=== PATIENT | male | born 1945 | race Two or more races ===

== ENCOUNTER 2023-11-28 00:25 | Inpatient (IN) | payer OTHER ==
[~2023-11-28] VITALS: Ht 175.3 cm; Wt 82.7 kg
[~2023-11-28 00:25] MED LIST: ASPI81CH43 PO; LAMO25CH PO; ZOLP5TAB PO
[2023-11-28 00:39] LABS: Basophils # (auto) 0.1 10 ^3/uL (0-0.2); Basophils % (auto) 1.5 % (0.0-2.0); Eosinophils # (auto) 0.2 10 ^3/uL (0-0.8); Eosinophils % (auto) 3.4 % (0.0-7.0); Hemoglobin 14.7 g/dL (13.5-17.5); Lymphocytes # (auto) 1.8 10 ^3/uL (0.4-5.4); Lymphocytes % (auto) 37.6 % (10.0-50.0); Mean Corpuscular Hemoglobin 28.3 pg (28.0-32.0); Mean Corpuscular Hgb Conc. 33.5 g/dL (32.0-36.0); Mean Corpuscular Volume 84.6 fL (80.0-100.0); Monocytes # (auto) 0.5 10 ^3/uL (0-1.3); Monocytes % (auto) 9.5 % (0.0-12.0); Neutrophils # (auto) 2.3 10 ^3/uL (1.6-8.6); Nucleated Red Blood Cells % 0.1 %; Red Cell Distribution Width 14.8 % (11.8-14.3); White Blood Cell 4.9 10^3/uL (4.4-10.8)
[2023-11-28 00:54] LABS: Alanine Aminotransferase 29 U/L (7-40); Albumin 3.9 g/dL (3.2-4.8); Alkaline Phosphatase 93 U/L (46-116); Anion Gap 8 (5-15); Aspartate Aminotransferase 32 U/L (13-40); BUN/Creatinine Ratio 12.6 (10.0-20.0); Blood Urea Nitrogen 16 mg/dL (9-23); Calcium 9.2 mg/dL (8.7-10.4); Carbon Dioxide 25 mmol/L (20-30); Chloride 103 mmol/L (98-107); Glucose 349 mg/dL (74-106); Potassium 4.2 mmol/L (3.5-5.1); Sodium 136 mmol/L (136-145)
[2023-11-28 00:55] LABS: Bilirubin, Total 0.3 mg/dL (0.2-1.0); Total Protein 6.7 g/dL (5.7-8.2)
[2023-11-28 04:30] VITALS: PULSE 62; RESP 16; O2SAT 98
[2023-11-28] MEDS ORDERED: ONDANSETRON HCL 4 MG/2 ML VIAL IV PRN (05:00)
[2023-11-28] MEDS: SODIUM CHLORIDE 0.9% 1,000 ML IV SCH (05:00)
[2023-11-28] MEDS ORDERED: HYDROcodone-ACET 5/325MG TAB PO PRN (05:00)
[2023-11-28] MEDS ORDERED: hydrALAZINE HCL 20 MG/ML VL IV PRN (05:00)
[2023-11-28] MEDS ORDERED: DEXTROSE (50%) 50ML SYRG IV PRN (05:00)
[2023-11-28] MEDS ORDERED: DOCUSATE SOD 100 MG CAP PO PRN (05:00)
[2023-11-28] MEDS ORDERED: ACETAMINOPHEN 325 MG TAB PO PRN (05:00)
[2023-11-28 05:59] LABS: Basophils # (auto) 0.1 10 ^3/uL (0-0.2); Basophils % (auto) 1.1 % (0.0-2.0); Eosinophils # (auto) 0.1 10 ^3/uL (0-0.8); Eosinophils % (auto) 2.5 % (0.0-7.0); Hematocrit 44.2 % (41.0-53.0); Lymphocytes # (auto) 1.8 10 ^3/uL (0.4-5.4); Lymphocytes % (auto) 37.3 % (10.0-50.0); Mean Corpuscular Hemoglobin 28.4 pg (28.0-32.0); Mean Corpuscular Hgb Conc. 33.9 g/dL (32.0-36.0); Mean Corpuscular Volume 83.8 fL (80.0-100.0); Monocytes # (auto) 0.5 10 ^3/uL (0-1.3); Monocytes % (auto) 9.7 % (0.0-12.0); Neutrophils # (auto) 2.3 10 ^3/uL (1.6-8.6); Neutrophils % (auto) 49.4 % (37.0-80.0); Nucleated Red Blood Cells % 0.1 %; Red Blood Cells 5.28 10^6/uL (4.5-5.90); Red Cell Distribution Width 14.8 % (11.8-14.3); White Blood Cell 4.7 10^3/uL (4.4-10.8)
[2023-11-28 06:14] LABS: Alanine Aminotransferase 29 U/L (7-40); Albumin 4.1 g/dL (3.2-4.8); Alkaline Phosphatase 93 U/L (46-116); Anion Gap 8 (5-15); Aspartate Aminotransferase 24 U/L (13-40); BUN/Creatinine Ratio 16.1 (10.0-20.0); Bilirubin, Total 0.3 mg/dL (0.2-1.0); Blood Urea Nitrogen 18 mg/dL (9-23); Calcium 9.7 mg/dL (8.7-10.4); Carbon Dioxide 25 mmol/L (20-30); Chloride 105 mmol/L (98-107); Potassium 4.6 mmol/L (3.5-5.1); Sodium 138 mmol/L (136-145); Total Protein 6.9 g/dL (5.7-8.2)
[2023-11-28] MEDS ORDERED: MORPHINE SULFATE INJ 2 MG/ml SYRG IV PRN (06:15)
[2023-11-28] MEDS ORDERED: NITROGLYCERIN 0.4 MG SL TAB SL PRN (06:15)
[2023-11-28] MEDS: ACCU-CHEK COMFORT CURVE STRIP VI SCH (06:41)
[2023-11-28] MEDS: InsuLIN REG 1unit/0.01ml Soln (100units/ml) SC SCH (06:41)
[2023-11-28 06:45] LABS: Glucose 209 mg/dL (74-106)
[2023-11-28 06:58] LABS: Urine Bacteria None Seen /hpf (None Seen)
[2023-11-28 07:24] LABS: Urine Blood Negative /uL (Negative); Urine Clarity Clear (Clear); Urine Color Light-Yellow (Yellow); Urine Mucus FEW (None Seen); Urine Protein, UAD TRACE (Negative); Urine Specific Gravity 1.031 (1.001-1.035); Urine Urobilinogen Normal (Negative); Urine WBC 1 /hpf (0 - 3); Urine pH 5.5 (5.0-9.0)
[2023-11-28 08:35] VITALS: BP 161/77; PULSE 61; RESP 16; TEMP 98; O2SAT 97
[2023-11-28] MEDS: amLODIPine BESYLATE 5 MG TAB PO SCH (10:57)
[2023-11-28] MEDS: ASPirin 81 mg TAB PO SCH (10:57)
[2023-11-28 12:45] VITALS: BP 166/68; PULSE 64; RESP 16; TEMP 97.4; O2SAT 99
[2023-11-28] MEDS ORDERED: InsuLIN REG 1unit/0.01ml Soln (100units/ml) SC SCH (22:00)
== END 2023-11-28 15:21 | disposition left against medical advice (07) | DRG 311 ==
LOC: ER 00:25 → TELE 06:13 → TELE-WESTW 08:14
PROVIDERS: ADMIT Internal Medicine; ATTEND Internal Medicine
DX: I24.9 Acute ischemic heart disease, unspecified (principal); F17.210 Nicotine dependence, cigarettes, uncomplicated; E78.5 Hyperlipidemia, unspecified; E11.65 Type 2 diabetes mellitus with hyperglycemia; Z53.29 Procedure and treatment not carried out because of patient's decision for other reasons; Z79.899 Other long term (current) drug therapy; Z79.4 Long term (current) use of insulin
CPT/HCPCS: 36415; 71045; 80053; 81001; 82962; 84484; 85025; 93005; 96360; G0378; J1815